=== PATIENT | female | born 1995 | race Caucasian/White ===

== ENCOUNTER 2021-06-19 12:16 | Day surgery (SDC) | payer SELFPAY ==
--- NOTE | 2021-06-19 12:20 | EDM.PDOC ---
ED HPI GENERAL MEDICAL PROBLEM - General Stated Complaint: CLINIC/URINE ISSUES Time Seen by Provider: 06/19/21 12:17 Source of Information: Reports: Patient History Limitations: Reports: No Limitations - History of Present Illness INITIAL COMMENTS - FREE TEXT/NARRATIVE: 26-year-old female no past medical history presents from clinic for buttock and anal area pain. Patient states that 6 days ago she passed a hard, large bowel movement and afterwards noted some bleeding in her stool and anal pain. She took [id number] stool softeners. She notes the pain is worsened over the last 2 to 3 days noting pain around her anus and into her buttocks. She describes it as a burning, spasm-like pain. She has noted subjective fever and chills. Denies any urinary symptoms. Denies vaginal discharge. Notes difficulty sitting secondary to pain. Patient was evaluated by clinic physician who notes patient was difficult to evaluate secondary to pain. She notes feeling a palpable lump around her inner-right buttocks. She notes painful defecation and had an "explosive" bowel movement yesterday which she attributes to OTC Dulcolax and which made symptoms much worse. She notes prior to pain starting around 1week ago she was "playing around" in a car doing pushups and being silly and thinks she could have injured it. Right Buttock Pain Score (Numeric/FACES): 9 - Related Data Allergies Allergy/AdvReac Type Severity Reaction Status Date / Time No Known Allergies Allergy Verified 06/19/21 12:27 Home Meds: Home Meds . [No Known Home Meds] 06/19/21 [History] ED ROS GENERAL - Review of Systems Review Of Systems: Comprehensive ROS is negative, except as noted in HPI. ED EXAM, GENERAL - Physical Exam Exam: See Below Exam Limited By: No Limitations General Appearance: Alert, WD/WN, No Apparent Distress Ears: Hearing Grossly Normal Throat/Mouth: Normal Voice, No Airway Compromise Head: Atraumatic, Normocephalic Neck: Normal Inspection Respiratory/Chest: No Respiratory Distress, Lungs Clear, Normal Breath Sounds, No Accessory Muscle Use Cardiovascular: Normal Peripheral Pulses, Regular Rate, Rhythm GI/Abdominal: Soft, Non-Tender Rectal (Female) Exam: Other (TTP of right inner buttocks without induration/erythema/fluctuance appreciated. Normal appearing anus. No discharge) Extremities: Normal Inspection Neurological: Alert, Normal Cognition, Normal Gait Psychiatric: Normal Affect, Normal Mood Skin Exam: Warm, Dry, Intact, Normal Color Course - Vital Signs Last Recorded V/S: Last Vital Signs Temp 97.5 F 06/19/21 12:29 Pulse 66 06/19/21 14:48 Resp 20 06/19/21 14:48 BP 108/50 L 06/19/21 14:48 Pulse Ox 99 06/19/21 14:48 - Orders/Labs/Meds Orders: Active Orders 24 hr Category Date Time Status CORONAVIRUS COVID-19 HANDY [MOLEC] Stat Lab 06/19/21 15:05 Received Piperacillin/Tazobactam [Piperacil-Tazobact] 4.5 gm Med 06/19/21 14:49 Active Sodium Chloride 0.9% [Normal Saline AdvBag] 100 ml IV ONETIME Saline Lock Insert [OM.PC] Stat Oth 06/19/21 12:45 Ordered Medication Orders Piperacillin Sod/Tazobactam (Sod 4.5 gm/ Sodium Chloride) 100 mls @ 100 mls/hr IV ONETIME ONE Stop: 06/19/21 15:48 Last Admin: 06/19/21 15:30 Dose: 100 mls/hr Documented by: LORELEI Labs: Laboratory Tests 06/19/21 06/19/21 06/19/21 Range/Units 12:45 12:45 13:00 WBC 16.39 H (4.0-11.0) K/uL RBC 4.00 L (4.30-5.90) M/uL Hgb 12.2 (12.0-16.0) g/dL Hct 36.3 (36.0-46.0) % MCV 90.8 (80.0-98.0) fL MCH 30.5 (27.0-32.0) pg MCHC 33.6 (31.0-37.0) g/dL RDW Std Deviation 39.1 (28.0-62.0) fl RDW Coeff of [place] 12 (11.0-15.0) % Plt Count 346 (150-400) K/uL MPV 9.00 (7.40-12.00) fL Neut % (Auto) 81.9 H (48.0-80.0) % Lymph % (Auto) 8.5 L (16.0-40.0) % [place] % (Auto) 9.3 (0.0-15.0) % Eos % (Auto) 0.2 (0.0-7.0) % Baso % (Auto) 0.1 (0.0-1.5) % Neut # (Auto) 13.4 H (1.4-5.7) K/uL Lymph # (Auto) 1.4 (0.6-2.4) K/uL [place] # (Auto) 1.5 H (0.0-0.8) K/uL Eos # (Auto) 0.0 (0.0-0.7) K/uL Baso # (Auto) 0.0 (0.0-0.1) K/uL Nucleated RBC % 0.0 /100WBC Nucleated RBCs # 0 K/uL Sodium 140 (136-145) mmol/L Potassium 3.9 (3.5-5.1) mmol/L Chloride 104 (98-107) mmol/L Carbon Dioxide 29.4 (21.0-32.0) mmol/L BUN 6 L (7.0-18.0) mg/dL Creatinine 0.7 (0.6-1.0) mg/dL Est Cr Clr Drug Dosing 103.32 mL/min Estimated GFR (MDRD) > 60.0 ml/min Glucose 117 H (74-106) mg/dL Lactic Acid (0.4-2.0) mmol/L Calcium 8.5 (8.5-10.1) mg/dL Total Bilirubin 0.3 (0.2-1.0) mg/dL AST 10 L (15-37) IU/L ALT 13 L (14-63) IU/L Alkaline Phosphatase 68 (46-116) U/L Total Protein 7.2 (6.4-8.2) g/dL Albumin 2.8 L (3.4-5.0) g/dL Globulin 4.4 H (2.6-4.0) g/dL Albumin/Globulin Ratio 0.6 L (0.9-1.6) Urine Color YELLOW Urine Appearance CLEAR Urine pH 6.5 (5.0-8.0) Ur Specific [place] <= 1.005 (1.001-1.035) Urine Protein NEGATIVE (NEGATIVE) mg/dL Urine Glucose (UA) NEGATIVE (NEGATIVE) mg/dL Urine Ketones NEGATIVE (NEGATIVE) mg/dL Urine Occult Blood TRACE-LYSED H (NEGATIVE) Urine Nitrite NEGATIVE (NEGATIVE) Urine Bilirubin NEGATIVE (NEGATIVE) Urine Urobilinogen 0.2 (<2.0) EU/dL Ur Leukocyte Esterase NEGATIVE (NEGATIVE) Urine RBC NONE SEEN (0-2/HPF) Urine WBC 0-1 (0-5/HPF) Ur Epithelial Cells FEW (NONE-FEW) Urine Bacteria 1+ H (NEGATIVE) Urine Mucus LIGHT (NONE-MOD) Urine HCG, Qual (NEGATIVE) 06/19/21 06/19/21 Range/Units 13:00 13:11 WBC (4.0-11.0) K/uL RBC (4.30-5.90) M/uL Hgb (12.0-16.0) g/dL Hct (36.0-46.0) % MCV (80.0-98.0) fL MCH (27.0-32.0) pg MCHC (31.0-37.0) g/dL RDW Std Deviation (28.0-62.0) fl RDW Coeff of [place] (11.0-15.0) % Plt Count (150-400) K/uL MPV (7.40-12.00) fL Neut % (Auto) (48.0-80.0) % Lymph % (Auto) (16.0-40.0) % [place] % (Auto) (0.0-15.0) % Eos % (Auto) (0.0-7.0) % Baso % (Auto) (0.0-1.5) % Neut # (Auto) (1.4-5.7) K/uL Lymph # (Auto) (0.6-2.4) K/uL [place] # (Auto) (0.0-0.8) K/uL Eos # (Auto) (0.0-0.7) K/uL Baso # (Auto) (0.0-0.1) K/uL Nucleated RBC % /100WBC Nucleated RBCs # K/uL Sodium (136-145) mmol/L Potassium (3.5-5.1) mmol/L Chloride (98-107) mmol/L Carbon Dioxide (21.0-32.0) mmol/L BUN (7.0-18.0) mg/dL Creatinine (0.6-1.0) mg/dL Est Cr Clr Drug Dosing mL/min Estimated GFR (MDRD) ml/min Glucose (74-106) mg/dL Lactic Acid 0.5 (0.4-2.0) mmol/L Calcium (8.5-10.1) mg/dL Total Bilirubin (0.2-1.0) mg/dL AST (15-37) IU/L ALT (14-63) IU/L Alkaline Phosphatase (46-116) U/L Total Protein (6.4-8.2) g/dL Albumin (3.4-5.0) g/dL Globulin (2.6-4.0) g/dL Albumin/Globulin Ratio (0.9-1.6) Urine Color Urine Appearance Urine pH (5.0-8.0) Ur Specific [place] (1.001-1.035) Urine Protein (NEGATIVE) mg/dL Urine Glucose (UA) (NEGATIVE) mg/dL Urine Ketones (NEGATIVE) mg/dL Urine Occult Blood (NEGATIVE) Urine Nitrite (NEGATIVE) Urine Bilirubin (NEGATIVE) Urine Urobilinogen (<2.0) EU/dL Ur Leukocyte Esterase (NEGATIVE) Urine RBC (0-2/HPF) Urine WBC (0-5/HPF) Ur Epithelial Cells (NONE-FEW) Urine Bacteria (NEGATIVE) Urine Mucus (NONE-MOD) Urine HCG, Qual NEGATIVE (NEGATIVE) Meds: Medications Generic Name Dose Route Start Last Admin Trade Name Freq PRN Reason Stop Dose Admin Piperacillin Sod/Tazobactam 100 mls @ 100 mls/hr 06/19/21 14:49 06/19/21 15:30 Sod 4.5 gm/ Sodium Chloride IV 06/19/21 15:48 100 mls/hr ONETIME ONE Administration Discontinued Medications Generic Name Dose Route Start Last Admin Trade Name Freq PRN Reason Stop Dose Admin Iopamidol 60 ml 06/19/21 13:56 06/19/21 13:56 Iopamidol 755 Mg/Ml 500 Ml Multipack Bottle IVPUSH 06/19/21 13:57 60 ml ONETIME STA Administration Morphine Sulfate 4 mg 06/19/21 12:45 06/19/21 12:52 Morphine 4 Mg/Ml Vial IVPUSH 06/19/21 12:46 4 mg ONETIME ONE Administration Morphine Sulfate 4 mg 06/19/21 14:36 06/19/21 14:46 Morphine 4 Mg/Ml Vial IVPUSH 06/19/21 14:37 4 mg ONETIME ONE Administration - Re-Assessments/Exams Free Text/Narrative Re-Assessment/Exam: 06/19/21 12:49 Uncertain etiology of symptoms. Will get basic labs and CT imaging to r/o deep space infection 06/19/21 13:24 Labs reveal leukocytosis, otherwise unremarkable 06/19/21 14:54 CT imaging with large perirectal abscess. Dr. Rothman general surgery. Zosyn ordered. COVID test ordered. 06/19/21 15:35 Will admit for observation and surgical drainage. Departure - Departure Time of Disposition: 15:35 Disposition: Refer to Observation Condition: Good Clinical Impression: Perirectal abscess - Discharge Information Instructions: Anorectal Abscess Referrals: PCP,None [Primary Care Provider] - Sepsis Event Note (ED) - Focused Exam Vital Signs: Vital Signs Temp Pulse Resp BP Pulse Ox 06/19/21 14:48 66 20 108/50 L 99 06/19/21 12:29 97.5 F 86 16 111/46 L 97 - My Orders Last 24 Hours: My Active Orders 06/19/21 12:45 Saline Lock Insert [OM.PC] Stat 06/19/21 14:49 Piperacillin/Tazobactam [Piperacil-Tazobact] 4.5 gm Sodium Chloride 0.9% [Normal Saline AdvBag] 100 ml IV ONETIME 06/19/21 15:05 CORONAVIRUS COVID-19 HANDY [MOLEC] Stat - Assessment/Plan Last 24 Hours: My Active Orders 06/19/21 12:45 Saline Lock Insert [OM.PC] Stat 06/19/21 14:49 Piperacillin/Tazobactam [Piperacil-Tazobact] 4.5 gm Sodium Chloride 0.9% [Normal Saline AdvBag] 100 ml IV ONETIME 06/19/21 15:05 CORONAVIRUS COVID-19 HANDY [MOLEC] Stat
[2021-06-19] MEDS ORDERED: Morphine 4 MG/ML VIAL IVPUSH ONE ×2 (12:45→14:36)
[2021-06-19 13:12] LABS: BLOOD UREA NITROGEN,BUN 6 mg/dL (7.0-18.0); CARBON DIOXIDE,CO2 29.4 mmol/L (21.0-32.0); CHLORIDE,CL 104 mmol/L (98-107); GLUCOSE RANDOM 117 mg/dL (74-106); POTASSIUM,K 3.9 mmol/L (3.5-5.1); SODIUM,NA 140 mmol/L (136-145)
[2021-06-19] MEDS ORDERED: Iopamidol 755 MG/ML 500 ML Multipack Bottle IVPUSH STA (13:56)
--- NOTE | 2021-06-19 14:44 | CT ---
INDICATION: Right perirectal pain. TECHNIQUE: CT abdomen and pelvis acquired with 60 cc Isovue 370 IV contrast. COMPARISON: None. FINDINGS: Lower chest: Unremarkable. Liver: Unremarkable. Normal in size and attenuation. No suspicious masses. Gallbladder and bile ducts: Unremarkable. No stones or inflammation. No biliary dilatation. Pancreas: Unremarkable. No mass or inflammation. Spleen: Unremarkable. Normal in size. No masses. Adrenal glands: Unremarkable. No nodules. Kidneys: Unremarkable. No suspicious masses, stones, or hydronephrosis. GI tract: Large 5 cm perirectal abscess is along the posterior lateral margins of the rectum as demonstrated on axial series 201, image 168. Remainder of the GI tract is unremarkable. Normal appendix. Vasculature: Unremarkable. Mesenteric arteries are patent. Lymph nodes: No lymphadenopathy. Omentum/Peritoneum/Abdominal Wall: Unremarkable. No sign of mass or infiltration. No free air or significant free fluid. Pelvis: Unremarkable. Bones: Unremarkable for age. IMPRESSION: Large 5 cm perirectal abscess. Remainder of the exam is unremarkable. Please note that all CT scans at this facility use dose modulation, iterative reconstruction, and/or weight-based dosing when appropriate to reduce radiation dose to as low as reasonably achievable. Dictated by Catalino Ricardo MD @ 06/19/2021 2:42:20 PM (Electronically Signed)
[2021-06-19] MEDS ORDERED: Piperacillin/Tazobactam 4.5 GM in Sodium Chloride 0.9% 100 ML IV ONE (14:49)
[2021-06-19] MEDS ORDERED: Sodium Chloride 0.9% 20 ML SDV IV PRN (15:46)
[2021-06-19] MEDS ORDERED: Sodium Chloride 0.9% 10 ML Syringe FLUSH PRN (15:46)
[2021-06-19] MEDS ORDERED: Sodium Chloride 0.9% 2.5 ML Syringe FLUSH PRN (15:46)
--- NOTE | 2021-06-19 15:54 | PCM.HP.2 ---
H&P History of Present Illness - General Date of Service: 06/19/21 Admit Problem/Dx: Admission Diagnosis/Problem Admission Diagnosis/Problem Perirectal abscess Source of Information: Patient History Limitations: Reports: No Limitations - History of Present Illness Initial Comments - Free Text/Narative: Patient is a 26 year old female who presents with a large perianal abscess. She had a pain with defecation and some bright red bleeding per rectum. The pain did not subside and has gotten worse around her anus. She started to developed diaphoresis, fevers and chills. The pain was so bad today she went to see her PCP. He sent her to the ER for further evaluation. Her WBC was elevated at 16K. CT scan of the abdomen/pelvis showed a large perianal abscess. Right Buttock Pain Score (Numeric/FACES): 9 - Related Data Allergies/Adverse Reactions: Allergies Allergy/AdvReac Type Severity Reaction Status Date / Time No Known Allergies Allergy Verified 06/19/21 12:27 Home Medications: Home Meds . [No Known Home Meds] 06/19/21 [History] Past Medical History HEENT History: Reports: Other (See Below) Other HEENT History: jaw surgery - Past Surgical History HEENT Surgical History: Reports: Other (See Below) (jaw surgery) Social & Family History - Family History Family Medical History: No Pertinent Family History - Tobacco Use Tobacco Use Status *Q: Never Tobacco User - Caffeine Use Caffeine Use: Reports: Coffee - Recreational Drug Use Recreational Drug Use: No H&P Review of Systems - Review of Systems: Review Of Systems: Comprehensive ROS is negative, except as noted in HPI. Exam - Exam Exam: See Below - Vital Signs Vital Signs: Last Vital Signs Temp 36.4 C 06/19/21 12:29 Pulse 66 06/19/21 14:48 Resp 20 06/19/21 14:48 BP 108/50 L 06/19/21 14:48 Pulse Ox 99 06/19/21 14:48 Weight: 72.575 kg - Exam General: Alert, Oriented, Moderate Distress HEENT: Conjunctiva Clear, Mucosa Moist & [place], Posterior Pharynx Clear Lungs: Clear to Auscultation, Normal Respiratory Effort Cardiovascular: Regular Rate, Regular Rhythm GI/Abdominal Exam: Soft, Non-Tender, No Distention, No Mass Rectal (Female) Exam: Other (Exquisite tenderness around anoderm. Fluctuant mass palpated along the left side. ) - Patient Data Lab Results Last 24 hrs: Laboratory Results - last 24 hr 06/19/21 06/19/21 06/19/21 Range/Units 12:45 12:45 13:00 WBC 16.39 H (4.0-11.0) K/uL RBC 4.00 L (4.30-5.90) M/uL Hgb 12.2 (12.0-16.0) g/dL Hct 36.3 (36.0-46.0) % MCV 90.8 (80.0-98.0) fL MCH 30.5 (27.0-32.0) pg MCHC 33.6 (31.0-37.0) g/dL RDW Std Deviation 39.1 (28.0-62.0) fl RDW Coeff of [place] 12 (11.0-15.0) % Plt Count 346 (150-400) K/uL MPV 9.00 (7.40-12.00) fL Neut % (Auto) 81.9 H (48.0-80.0) % Lymph % (Auto) 8.5 L (16.0-40.0) % [place] % (Auto) 9.3 (0.0-15.0) % Eos % (Auto) 0.2 (0.0-7.0) % Baso % (Auto) 0.1 (0.0-1.5) % Neut # (Auto) 13.4 H (1.4-5.7) K/uL Lymph # (Auto) 1.4 (0.6-2.4) K/uL [place] # (Auto) 1.5 H (0.0-0.8) K/uL Eos # (Auto) 0.0 (0.0-0.7) K/uL Baso # (Auto) 0.0 (0.0-0.1) K/uL Nucleated RBC % 0.0 /100WBC Nucleated RBCs # 0 K/uL Sodium 140 (136-145) mmol/L Potassium 3.9 (3.5-5.1) mmol/L Chloride 104 (98-107) mmol/L Carbon Dioxide 29.4 (21.0-32.0) mmol/L BUN 6 L (7.0-18.0) mg/dL Creatinine 0.7 (0.6-1.0) mg/dL Est Cr Clr Drug Dosing 103.32 mL/min Estimated GFR (MDRD) > 60.0 ml/min Glucose 117 H (74-106) mg/dL Lactic Acid (0.4-2.0) mmol/L Calcium 8.5 (8.5-10.1) mg/dL Total Bilirubin 0.3 (0.2-1.0) mg/dL AST 10 L (15-37) IU/L ALT 13 L (14-63) IU/L Alkaline Phosphatase 68 (46-116) U/L Total Protein 7.2 (6.4-8.2) g/dL Albumin 2.8 L (3.4-5.0) g/dL Globulin 4.4 H (2.6-4.0) g/dL Albumin/Globulin Ratio 0.6 L (0.9-1.6) Urine Color YELLOW Urine Appearance CLEAR Urine pH 6.5 (5.0-8.0) Ur Specific [place] <= 1.005 (1.001-1.035) Urine Protein NEGATIVE (NEGATIVE) mg/dL Urine Glucose (UA) NEGATIVE (NEGATIVE) mg/dL Urine Ketones NEGATIVE (NEGATIVE) mg/dL Urine Occult Blood TRACE-LYSED H (NEGATIVE) Urine Nitrite NEGATIVE (NEGATIVE) Urine Bilirubin NEGATIVE (NEGATIVE) Urine Urobilinogen 0.2 (<2.0) EU/dL Ur Leukocyte Esterase NEGATIVE (NEGATIVE) Urine RBC NONE SEEN (0-2/HPF) Urine WBC 0-1 (0-5/HPF) Ur Epithelial Cells FEW (NONE-FEW) Urine Bacteria 1+ H (NEGATIVE) Urine Mucus LIGHT (NONE-MOD) Urine HCG, Qual (NEGATIVE) 06/19/21 06/19/21 Range/Units 13:00 13:11 WBC (4.0-11.0) K/uL RBC (4.30-5.90) M/uL Hgb (12.0-16.0) g/dL Hct (36.0-46.0) % MCV (80.0-98.0) fL MCH (27.0-32.0) pg MCHC (31.0-37.0) g/dL RDW Std Deviation (28.0-62.0) fl RDW Coeff of [place] (11.0-15.0) % Plt Count (150-400) K/uL MPV (7.40-12.00) fL Neut % (Auto) (48.0-80.0) % Lymph % (Auto) (16.0-40.0) % [place] % (Auto) (0.0-15.0) % Eos % (Auto) (0.0-7.0) % Baso % (Auto) (0.0-1.5) % Neut # (Auto) (1.4-5.7) K/uL Lymph # (Auto) (0.6-2.4) K/uL [place] # (Auto) (0.0-0.8) K/uL Eos # (Auto) (0.0-0.7) K/uL Baso # (Auto) (0.0-0.1) K/uL Nucleated RBC % /100WBC Nucleated RBCs # K/uL Sodium (136-145) mmol/L Potassium (3.5-5.1) mmol/L Chloride (98-107) mmol/L Carbon Dioxide (21.0-32.0) mmol/L BUN (7.0-18.0) mg/dL Creatinine (0.6-1.0) mg/dL Est Cr Clr Drug Dosing mL/min Estimated GFR (MDRD) ml/min Glucose (74-106) mg/dL Lactic Acid 0.5 (0.4-2.0) mmol/L Calcium (8.5-10.1) mg/dL Total Bilirubin (0.2-1.0) mg/dL AST (15-37) IU/L ALT (14-63) IU/L Alkaline Phosphatase (46-116) U/L Total Protein (6.4-8.2) g/dL Albumin (3.4-5.0) g/dL Globulin (2.6-4.0) g/dL Albumin/Globulin Ratio (0.9-1.6) Urine Color Urine Appearance Urine pH (5.0-8.0) Ur Specific [place] (1.001-1.035) Urine Protein (NEGATIVE) mg/dL Urine Glucose (UA) (NEGATIVE) mg/dL Urine Ketones (NEGATIVE) mg/dL Urine Occult Blood (NEGATIVE) Urine Nitrite (NEGATIVE) Urine Bilirubin (NEGATIVE) Urine Urobilinogen (<2.0) EU/dL Ur Leukocyte Esterase (NEGATIVE) Urine RBC (0-2/HPF) Urine WBC (0-5/HPF) Ur Epithelial Cells (NONE-FEW) Urine Bacteria (NEGATIVE) Urine Mucus (NONE-MOD) Urine HCG, Qual NEGATIVE (NEGATIVE) Result Diagrams: 06/19/21 12:45 06/19/21 12:45 Sepsis Event Note - Focused Exam Vital Signs: Vital Signs Temp Pulse Resp BP Pulse Ox 06/19/21 14:48 66 20 108/50 L 99 06/19/21 12:29 36.4 C 86 16 111/46 L 97 - Problem List (1) Perirectal abscess SNOMED Code(s): 02372673 ICD Code: K61.1 - RECTAL ABSCESS Status: Acute Current Visit: Yes Problem List Initiated/Reviewed/Updated: Yes Orders Last 24hrs: Active Orders 24 hr Category Date Time Status Patient Status [ADT] Routine ADT 06/19/21 15:46 Ordered Antiembolic Devices [RC] PER UNIT ROUTINE Care 06/19/21 15:47 Ordered RT Incentive Spirometry [RC] Q1HWA Care 06/19/21 15:46 Ordered Verify Patient Consent Obtain [RC] ASDIRECTED Care 06/19/21 15:46 Ordered CORONAVIRUS COVID-19 HANDY [MOLEC] Stat Lab 06/19/21 15:05 Received Lactated Ringers @ 125 MLS/HR(1000ml) Med 06/19/21 16:00 Ordered Lactated Ringers [Ringers, Lactated] 1,000 ml IV ASDIRECTED Piperacillin/Tazobactam [Piperacil-Tazobact] 4.5 gm Med 06/19/21 14:49 Active Sodium Chloride 0.9% [Normal Saline AdvBag] 100 ml IV ONETIME Sodium Chloride 0.9% [Normal Saline] Med 06/19/21 15:46 Ordered 10 ml IV ASDIRECTED PRN Sodium Chloride 0.9% [Saline Flush] Med 06/19/21 15:46 Ordered 10 ml FLUSH ASDIRECTED PRN Sodium Chloride 0.9% [Saline Flush] Med 06/19/21 15:46 Ordered 2.5 ml FLUSH ASDIRECTED PRN Peripheral IV Insertion Adult [OM.PC] Routine Oth 06/19/21 15:46 Ordered Saline Lock Insert [OM.PC] Stat Oth 06/19/21 12:45 Ordered Sequential Compression Device [OM.PC] Routine Oth 06/19/21 15:46 Ordered Resuscitation Status Routine Resus Stat 06/19/21 15:46 Ordered Medication Orders Piperacillin Sod/Tazobactam (Sod 4.5 gm/ Sodium Chloride) 100 mls @ 100 mls/hr IV ONETIME ONE Stop: 06/19/21 15:48 Last Admin: 06/19/21 15:30 Dose: 100 mls/hr Documented by: LORELEI Lactated Ringer's (Ringers, Lactated) 1,000 mls @ 125 mls/hr IV ASDIRECTED DEEPIKA Sodium Chloride (Sodium Chloride 0.9% 10 Ml Syringe) 10 ml FLUSH ASDIRECTED PRN PRN Reason: Keep Vein Open Sodium Chloride (Sodium Chloride 0.9% 2.5 Ml Syringe) 2.5 ml FLUSH ASDIRECTED PRN PRN Reason: Keep Vein Open Sodium Chloride (Sodium Chloride 0.9% 20 Ml Sdv) 10 ml IV ASDIRECTED PRN PRN Reason: IV Use Assessment/Plan Comment:: Patient and I discussed the pathophysiology of perianal abscesses and fistulas. We discussed the CT findings. Her perianal abscess is very large and therefore she needs to go to the OR to have an aggressive debridement with possible drain and/or seton placement. We discussed the procedure, expected perioperative course and risks including bleeding, infection or damage to surrounding structures particularly the sphincter muscles which could effect continence. She verbalized understanding and wishes to proceed. She was given zosyn in the ER.
[2021-06-19] MEDS ORDERED: Lactated Ringers 1,000 ML IV SCH (16:00)
--- NOTE | 2021-06-19 16:06 | PCM.PREANE ---
Preanesthetic Assessment - Anesthesia/Transfusion/Family Hx Anesthesia History: Prior Anesthesia Without Reaction Transfusion History: No Prior Transfusion(s) - Review of Systems General: No Symptoms Pulmonary: No Symptoms Cardiovascular: No Symptoms Gastrointestinal: No Symptoms Neurological: No Symptoms Other: Reports: None - Physical Assessment NPO Status Date: 06/19/21 NPO Status Time: 09:00 Vital Signs: Last Vital Signs Temp 36.4 C 06/19/21 12:29 Pulse 66 06/19/21 14:48 Resp 20 06/19/21 14:48 BP 108/50 L 06/19/21 14:48 Pulse Ox 99 06/19/21 14:48 Height: 5 ft 4 in Weight: 72.575 kg ASA Class: 1E Mental Status: Alert & Oriented x3 Airway Class: Mallampati = 2 Dentition: Reports: Normal Dentition Thyro-Mental Finger Breadths: 3 Mouth Opening Finger Breadths: 3 ROM/Head Extension: Full Lungs: Clear to Auscultation, Normal Respiratory Effort Cardiovascular: Regular Rate, Regular Rhythm - Lab Values: Laboratory Last Values WBC 16.39 K/uL (4.0-11.0) H 06/19/21 12:45 RBC 4.00 M/uL (4.30-5.90) L 06/19/21 12:45 Hgb 12.2 g/dL (12.0-16.0) 06/19/21 12:45 Hct 36.3 % (36.0-46.0) 06/19/21 12:45 MCV 90.8 fL (80.0-98.0) 06/19/21 12:45 MCH 30.5 pg (27.0-32.0) 06/19/21 12:45 MCHC 33.6 g/dL (31.0-37.0) 06/19/21 12:45 RDW Std Deviation 39.1 fl (28.0-62.0) 06/19/21 12:45 RDW Coeff of [place] 12 % (11.0-15.0) 06/19/21 12:45 Plt Count 346 K/uL (150-400) 06/19/21 12:45 MPV 9.00 fL (7.40-12.00) 06/19/21 12:45 Neut % (Auto) 81.9 % (48.0-80.0) H 06/19/21 12:45 Lymph % (Auto) 8.5 % (16.0-40.0) L 06/19/21 12:45 [place] % (Auto) 9.3 % (0.0-15.0) 06/19/21 12:45 Eos % (Auto) 0.2 % (0.0-7.0) 06/19/21 12:45 Baso % (Auto) 0.1 % (0.0-1.5) 06/19/21 12:45 Neut # (Auto) 13.4 K/uL (1.4-5.7) H 06/19/21 12:45 Lymph # (Auto) 1.4 K/uL (0.6-2.4) 06/19/21 12:45 [place] # (Auto) 1.5 K/uL (0.0-0.8) H 06/19/21 12:45 Eos # (Auto) 0.0 K/uL (0.0-0.7) 06/19/21 12:45 Baso # (Auto) 0.0 K/uL (0.0-0.1) 06/19/21 12:45 Nucleated RBC % 0.0 /100WBC 06/19/21 12:45 Nucleated RBCs # 0 K/uL 06/19/21 12:45 Sodium 140 mmol/L (136-145) 06/19/21 12:45 Potassium 3.9 mmol/L (3.5-5.1) 06/19/21 12:45 Chloride 104 mmol/L (98-107) 06/19/21 12:45 Carbon Dioxide 29.4 mmol/L (21.0-32.0) 06/19/21 12:45 BUN 6 mg/dL (7.0-18.0) L 06/19/21 12:45 Creatinine 0.7 mg/dL (0.6-1.0) 06/19/21 12:45 Est Cr Clr Drug Dosing 103.32 mL/min 06/19/21 12:45 Estimated GFR (MDRD) > 60.0 ml/min 06/19/21 12:45 Glucose 117 mg/dL (74-106) H 06/19/21 12:45 Lactic Acid 0.5 mmol/L (0.4-2.0) 06/19/21 13:11 Calcium 8.5 mg/dL (8.5-10.1) 06/19/21 12:45 Total Bilirubin 0.3 mg/dL (0.2-1.0) 06/19/21 12:45 AST 10 IU/L (15-37) L 06/19/21 12:45 ALT 13 IU/L (14-63) L 06/19/21 12:45 Alkaline Phosphatase 68 U/L (46-116) 06/19/21 12:45 Total Protein 7.2 g/dL (6.4-8.2) 06/19/21 12:45 Albumin 2.8 g/dL (3.4-5.0) L 06/19/21 12:45 Globulin 4.4 g/dL (2.6-4.0) H 06/19/21 12:45 Albumin/Globulin Ratio 0.6 (0.9-1.6) L 06/19/21 12:45 Urine Color YELLOW 06/19/21 13:00 Urine Appearance CLEAR 06/19/21 13:00 Urine pH 6.5 (5.0-8.0) 06/19/21 13:00 Ur Specific [place] <= 1.005 (1.001-1.035) 06/19/21 13:00 Urine Protein NEGATIVE mg/dL (NEGATIVE) 06/19/21 13:00 Urine Glucose (UA) NEGATIVE mg/dL (NEGATIVE) 06/19/21 13:00 Urine Ketones NEGATIVE mg/dL (NEGATIVE) 06/19/21 13:00 Urine Occult Blood TRACE-LYSED (NEGATIVE) H 06/19/21 13:00 Urine Nitrite NEGATIVE (NEGATIVE) 06/19/21 13:00 Urine Bilirubin NEGATIVE (NEGATIVE) 06/19/21 13:00 Urine Urobilinogen 0.2 EU/dL (<2.0) 06/19/21 13:00 Ur Leukocyte Esterase NEGATIVE (NEGATIVE) 06/19/21 13:00 Urine RBC NONE SEEN (0-2/HPF) 06/19/21 13:00 Urine WBC 0-1 (0-5/HPF) 06/19/21 13:00 Ur Epithelial Cells FEW (NONE-FEW) 06/19/21 13:00 Urine Bacteria 1+ (NEGATIVE) H 06/19/21 13:00 Urine Mucus LIGHT (NONE-MOD) 06/19/21 13:00 Urine HCG, Qual NEGATIVE (NEGATIVE) 06/19/21 13:00 SARS-CoV-2 RNA (HANDY) NEGATIVE (NEGATIVE) 06/19/21 15:05 - Allergies Allergies/Adverse Reactions: Allergies Allergy/AdvReac Type Severity Reaction Status Date / Time No Known Allergies Allergy Verified 06/19/21 12:27 - Acknowledgements Anesthesia Type Planned: General Anesthesia Pt an Appropriate Candidate for the Planned Anesthesia: Yes Alternatives and Risks of Anesthesia Discussed w Pt/Guardian: Yes Pt/Guardian Understands and Agrees with Anesthesia Plan: Yes PreAnesthesia Questionnaire HEENT History: Reports: Other (See Below) Other HEENT History: jaw surgery - Past Surgical History HEENT Surgical History: Reports: Other (See Below) (jaw surgery) - SUBSTANCE USE Tobacco Use Status *Q: Never Tobacco User Recreational Drug Use History: No - HOME MEDS Home Medications: Home Meds . [No Known Home Meds] 06/19/21 [History] - CURRENT (IN HOUSE) MEDS Current Meds: Current Medications Lactated Ringer's (Ringers, Lactated) 1,000 mls @ 125 mls/hr IV ASDIRECTED DEEPIKA Sodium Chloride (Sodium Chloride 0.9% 10 Ml Syringe) 10 ml FLUSH ASDIRECTED PRN PRN Reason: Keep Vein Open Sodium Chloride (Sodium Chloride 0.9% 2.5 Ml Syringe) 2.5 ml FLUSH ASDIRECTED PRN PRN Reason: Keep Vein Open Sodium Chloride (Sodium Chloride 0.9% 20 Ml Sdv) 10 ml IV ASDIRECTED PRN PRN Reason: IV Use Discontinued Medications Piperacillin Sod/Tazobactam (Sod 4.5 gm/ Sodium Chloride) 100 mls @ 100 mls/hr IV ONETIME ONE Stop: 06/19/21 15:48 Last Admin: 06/19/21 15:30 Dose: 100 mls/hr Documented by: Iopamidol (Iopamidol 755 Mg/Ml 500 Ml Multipack Bottle) 60 ml IVPUSH ONETIME STA Stop: 06/19/21 13:57 Last Admin: 06/19/21 13:56 Dose: 60 ml Documented by: Morphine Sulfate (Morphine 4 Mg/Ml Vial) 4 mg IVPUSH ONETIME ONE Stop: 06/19/21 12:46 Last Admin: 06/19/21 12:52 Dose: 4 mg Documented by: Morphine Sulfate (Morphine 4 Mg/Ml Vial) 4 mg IVPUSH ONETIME ONE Stop: 06/19/21 14:37 Last Admin: 06/19/21 14:46 Dose: 4 mg Documented by:
[2021-06-19] MEDS ORDERED: fentaNYL 100 MCG/2 ML SDV ONE (16:07)
[2021-06-19] MEDS ORDERED: Lidocaine 2% 100 MG/5 ML Syringe ONE (16:07)
[2021-06-19] MEDS ORDERED: Dexmedetomidine 200 MCG/2 ML SDV ONE (16:07)
[2021-06-19] MEDS ORDERED: Dexamethasone 4 MG/ML 5 ML MDV ONE (16:07)
[2021-06-19] MEDS ORDERED: Propofol 200 MG/20 ML SDV ONE (16:07)
[2021-06-19] MEDS ORDERED: Midazolam 1 MG/ML 2 ML SDV ONE (16:08)
[2021-06-19] MEDS ORDERED: Rocuronium Bromide 50 MG/5 ML Syringe ONE (16:08)
[2021-06-19] MEDS ORDERED: Water For Injection, Sterile 20 ML ONE (16:11)
[2021-06-19] MEDS ORDERED: Bupivacaine 0.5% 10 ML SDV ONE (16:15)
[2021-06-19] MEDS ORDERED: Ondansetron 4 MG/2 ML SDV ONE (17:07)
[2021-06-19] MEDS ORDERED: ePHEDrine 50 MG/ML SDV ONE (17:07)
[2021-06-19] MEDS ORDERED: Ketorolac 30 MG/ML SDV ONE (17:07)
[2021-06-19] MEDS ORDERED: fentaNYL 100 MCG/2 ML SDV IVPUSH PRN (17:14)
[2021-06-19] MEDS ORDERED: Metoclopramide 10 MG/2 ML SDV IVPUSH PRN (17:14)
[2021-06-19] MEDS ORDERED: Naloxone 0.4 MG/ML SDV IVPUSH PRN (17:14)
[2021-06-19] MEDS ORDERED: Ondansetron 4 MG/2 ML SDV IVPUSH PRN ×2 (17:14→17:58)
[2021-06-19] MEDS ORDERED: Morphine 2 MG/ML SYRINGE IVPUSH PRN (17:14)
[2021-06-19] MEDS ORDERED: HYDROmorphone 1 MG/ML Syringe IVPUSH PRN ×2 (17:14→17:58)
[2021-06-19] MEDS ORDERED: Albuterol 0.083% 2.5 MG/3 ML Neb Soln NEB PRN (17:14)
[2021-06-19] MEDS ORDERED: Acetaminophen/oxyCODONE 325-5 MG Tab PO PRN (17:58)
[2021-06-19] MEDS ORDERED: diphenhydrAMINE 50 MG/ML SDV IVPUSH PRN (17:58)
--- NOTE | 2021-06-19 17:58 | PCM.OPNOTE ---
- General Post-Op/Procedure Note Date of Surgery/Procedure: 06/19/21 Operative Procedure(s): Incision and drainage of perianal abscess, seton placement perianal fistula Findings: Perianal abscess multiloculated and approximately 10 x 6 x 10 cm. Posterior midline fissure, posterior midline fistula. Pre Op Diagnosis: Perianal abscess Post-Op Diagnosis: Perianal abscess, posterior midline fissure and fistula Anesthesia Technique: General ET Tube Primary Surgeon: Erlinda Rothman Condition: Stable
--- NOTE | 2021-06-19 18:02 | PCM.POSTAN ---
POST ANESTHESIA ASSESSMENT - MENTAL STATUS Mental Status: Alert, Oriented - VITAL SIGNS Vital Signs: Last Vital Signs Temp 36.4 C 06/19/21 12:29 Pulse 66 06/19/21 14:48 Resp 20 06/19/21 14:48 BP 108/50 L 06/19/21 14:48 Pulse Ox 99 06/19/21 14:48 - RESPIRATORY Respiratory Status: Respiratory Rate WNL, Airway Patent, O2 Saturation Stable - CARDIOVASCULAR CV Status: Pulse Rate WNL, Blood Pressure Stable - GASTROINTESTINAL GI Status: No Symptoms - POST OP HYDRATION Hydration Status: Adequate & Stable
--- NOTE | 2021-06-19 18:10 | PCM48HPAN ---
Post Anesthesia Note - EVALUATION WITHIN 48HRS OF ANESTHETIC Vital Signs in Normal Range: Yes Patient Participated in Evaluation: Yes Respiratory Function Stable: Yes Airway Patent: Yes Cardiovascular Function Stable: Yes Hydration Status Stable: Yes Pain Control Satisfactory: Yes Nausea and Vomiting Control Satisfactory: Yes Mental Status Recovered: Yes Vital Signs: Last Vital Signs Temp 36.4 C 06/19/21 17:38 Pulse 81 06/19/21 18:03 Resp 17 06/19/21 18:03 BP 110/60 06/19/21 18:03 Pulse Ox 94 L 06/19/21 18:03
[2021-06-19] MEDS: Piperacillin/Tazobactam 3.375 GM in Sodium Chloride 0.9% 50 ML IV SCH (22:09)
--- NOTE | 2021-06-20 00:05 | OR ---
SURGEON: ERLINDA ROTHMAN MD DATE OF PROCEDURE: 06/19/2021 PREOPERATIVE DIAGNOSIS: Perianal abscess. POSTOPERATIVE DIAGNOSES: 1. Perianal abscess. 2. Posterior midline anal fissure. 3. Posterior midline anal fistula. PROCEDURE PERFORMED: Exam under anesthesia; incision and drainage of perianal abscess; seton placement, perianal fistula. PRIMARY SURGEON: Erlinda Rothman MD ANESTHESIA: General endotracheal anesthesia. FLUIDS: 1000 mL crystalloid. ESTIMATED BLOOD LOSS: 10 mL. FINDINGS: Large posterior midline perianal abscess that tracked laterally along both the right and left anoderm. A posterior midline fissure, posterior midline fistula. COMPLICATIONS: None. INDICATIONS: The patient is a 26-year-old female who presented to the emergency room with 1 week of perianal pain. Workup revealed an elevated white count, and CT scan showed a large posterior perianal abscess, which appeared to track both medially on either side of the anus. Given its size and the amount of pain the patient was in, the decision was made to proceed to the operating room to examine her under anesthesia, incise and drain this abscess, and look for signs of a perianal fistula or perianal fissure. The patient and I discussed the procedure, expected perioperative course, and the risks. She verbalized understanding and wishes to proceed. PROCEDURE IN DETAIL: The patient was brought to the OR and placed on the OR cart in supine position. A time-out was completed verifying the patient's name, age, date of , allergies, and procedure to be performed. General endotracheal anesthesia was induced. The patient was then turned into a prone position making sure to appropriately position and pad the patient. She was secured to the bed. The anus and buttocks were then prepped and draped in usual standard fashion. A digital rectal exam was performed. I could feel some fullness along the posterior midline of the anal canal. There was fluctuance on either side on both the right posterolateral anoderm and left posterolateral anoderm. Using an 18-gauge needle, I pierced into the fluctuant area on the right side of the anoderm. 25 mL of purulent material was aspirated. The syringe and needle were removed. I then used an 11-blade to make a 1 cm incision in this area. I entered a very large cavity which tracked posteriorly as well as medially. This crossed the midline. Using a Eva clamp, I was able to reach across to the other side. In the area where I palpated the fullness on the left side, a counter incision was made using an 11 blade. I copiously irrigated this large abscess cavity with normal saline. It was explored with a Eva and hemostat, making sure to take down any loculations inside the abscess cavity. The abscess cavity measured 10 x 6 x 10 cm in size. It tracked anteriorly on both the right and left sides. A counter incision was made on either of the sides to allow for proper drainage. Quarter-inch [place] drains them were looped on both the right and left lateral anoderm back to my incision sites posteriorly. I then placed a [place] drain posteriorly across the midline as well. These were secured to themselves using 2-0 silk suture. A bivalve proctoscope was placed into the anus and used to explore the anal canal. The posterior anal canal and the distal rectum appeared injected. Along the posterior midline, the patient had a new-appearing anal fissure. A fistula probe was brought through one of my stab incision sites. It easily tracked to the posterior midline and an anal fistula was found down below the perianal fissure. A seton was then looped through this and secured to itself using interrupted 2-0 silk sutures. The area was closely inspected again. No other pockets of purulent material were noted. I packed 1 inch packing strip into the deep spaces posteriorly to allow for wicking of fluid out. I then numbed the anoderm and surrounding tissue with Exparel. 4 x 4 fluffs and mesh underwear were then used to cover the area. All bleeding was done at the end of the case. All counts were complete and correct at the end of the case. The patient was laid into a supine position on the OR cart and extubated. She was taken to the PACU in stable condition. POLI / BERE /[id number]
[2021-06-20] MEDS: Ketorolac 15 MG/ML SDV IVPUSH SCH ×3 (00:20→10:59)
[2021-06-20] MEDS: Piperacillin/Tazobactam 3.375 GM in Sodium Chloride 0.9% 50 ML IV SCH ×2 (04:03→09:05)
[2021-06-20] MEDS ORDERED: Polyethylene Glycol 3350 Powder 17 GM Packet PO SCH (09:00)
--- NOTE | 2021-06-20 09:17 | PCM.SURGPN ---
- General Info Date of Service: 06/20/21 Functional Status: Reports: Pain Controlled, Tolerating Diet, Ambulating, Urinating. Denies: New Symptoms - Review of Systems General: Reports: Night Sweats. Denies: Fever, Weakness, Fatigue, Malaise, Chills HEENT: Reports: No Symptoms Pulmonary: Reports: No Symptoms Cardiovascular: Reports: No Symptoms Gastrointestinal: Reports: No Symptoms Musculoskeletal: Reports: No Symptoms Skin: Reports: No Symptoms - Patient Data Vitals - Most Recent: Last Vital Signs Temp 36.3 C 06/20/21 04:00 Pulse 60 06/20/21 04:00 Resp 15 06/20/21 04:00 BP 119/68 06/20/21 04:00 Pulse Ox 98 06/20/21 04:00 Weight - Most Recent: 72.575 kg I&O - Last 24 Hours: Intake & Output 06/19/21 06/20/21 06/20/21 22:59 06:59 14:59 Intake Total 1150 1100 Balance 1150 1100 Lab Results Last 24 Hrs: Laboratory Results - last 24 hr 06/19/21 06/19/21 06/19/21 Range/Units 12:45 12:45 13:00 WBC 16.39 H (4.0-11.0) K/uL RBC 4.00 L (4.30-5.90) M/uL Hgb 12.2 (12.0-16.0) g/dL Hct 36.3 (36.0-46.0) % MCV 90.8 (80.0-98.0) fL MCH 30.5 (27.0-32.0) pg MCHC 33.6 (31.0-37.0) g/dL RDW Std Deviation 39.1 (28.0-62.0) fl RDW Coeff of [place] 12 (11.0-15.0) % Plt Count 346 (150-400) K/uL MPV 9.00 (7.40-12.00) fL Neut % (Auto) 81.9 H (48.0-80.0) % Lymph % (Auto) 8.5 L (16.0-40.0) % [place] % (Auto) 9.3 (0.0-15.0) % Eos % (Auto) 0.2 (0.0-7.0) % Baso % (Auto) 0.1 (0.0-1.5) % Neut # (Auto) 13.4 H (1.4-5.7) K/uL Lymph # (Auto) 1.4 (0.6-2.4) K/uL [place] # (Auto) 1.5 H (0.0-0.8) K/uL Eos # (Auto) 0.0 (0.0-0.7) K/uL Baso # (Auto) 0.0 (0.0-0.1) K/uL Nucleated RBC % 0.0 /100WBC Nucleated RBCs # 0 K/uL Sodium 140 (136-145) mmol/L Potassium 3.9 (3.5-5.1) mmol/L Chloride 104 (98-107) mmol/L Carbon Dioxide 29.4 (21.0-32.0) mmol/L BUN 6 L (7.0-18.0) mg/dL Creatinine 0.7 (0.6-1.0) mg/dL Est Cr Clr Drug Dosing 103.32 mL/min Estimated GFR (MDRD) > 60.0 ml/min Glucose 117 H (74-106) mg/dL Lactic Acid (0.4-2.0) mmol/L Calcium 8.5 (8.5-10.1) mg/dL Total Bilirubin 0.3 (0.2-1.0) mg/dL AST 10 L (15-37) IU/L ALT 13 L (14-63) IU/L Alkaline Phosphatase 68 (46-116) U/L Total Protein 7.2 (6.4-8.2) g/dL Albumin 2.8 L (3.4-5.0) g/dL Globulin 4.4 H (2.6-4.0) g/dL Albumin/Globulin Ratio 0.6 L (0.9-1.6) Urine Color YELLOW Urine Appearance CLEAR Urine pH 6.5 (5.0-8.0) Ur Specific [place] <= 1.005 (1.001-1.035) Urine Protein NEGATIVE (NEGATIVE) mg/dL Urine Glucose (UA) NEGATIVE (NEGATIVE) mg/dL Urine Ketones NEGATIVE (NEGATIVE) mg/dL Urine Occult Blood TRACE-LYSED H (NEGATIVE) Urine Nitrite NEGATIVE (NEGATIVE) Urine Bilirubin NEGATIVE (NEGATIVE) Urine Urobilinogen 0.2 (<2.0) EU/dL Ur Leukocyte Esterase NEGATIVE (NEGATIVE) Urine RBC NONE SEEN (0-2/HPF) Urine WBC 0-1 (0-5/HPF) Ur Epithelial Cells FEW (NONE-FEW) Urine Bacteria 1+ H (NEGATIVE) Urine Mucus LIGHT (NONE-MOD) Urine HCG, Qual (NEGATIVE) SARS-CoV-2 RNA (HANDY) (NEGATIVE) 06/19/21 06/19/21 06/19/21 Range/Units 13:00 13:11 15:05 WBC (4.0-11.0) K/uL RBC (4.30-5.90) M/uL Hgb (12.0-16.0) g/dL Hct (36.0-46.0) % MCV (80.0-98.0) fL MCH (27.0-32.0) pg MCHC (31.0-37.0) g/dL RDW Std Deviation (28.0-62.0) fl RDW Coeff of [place] (11.0-15.0) % Plt Count (150-400) K/uL MPV (7.40-12.00) fL Neut % (Auto) (48.0-80.0) % Lymph % (Auto) (16.0-40.0) % [place] % (Auto) (0.0-15.0) % Eos % (Auto) (0.0-7.0) % Baso % (Auto) (0.0-1.5) % Neut # (Auto) (1.4-5.7) K/uL Lymph # (Auto) (0.6-2.4) K/uL [place] # (Auto) (0.0-0.8) K/uL Eos # (Auto) (0.0-0.7) K/uL Baso # (Auto) (0.0-0.1) K/uL Nucleated RBC % /100WBC Nucleated RBCs # K/uL Sodium (136-145) mmol/L Potassium (3.5-5.1) mmol/L Chloride (98-107) mmol/L Carbon Dioxide (21.0-32.0) mmol/L BUN (7.0-18.0) mg/dL Creatinine (0.6-1.0) mg/dL Est Cr Clr Drug Dosing mL/min Estimated GFR (MDRD) ml/min Glucose (74-106) mg/dL Lactic Acid 0.5 (0.4-2.0) mmol/L Calcium (8.5-10.1) mg/dL Total Bilirubin (0.2-1.0) mg/dL AST (15-37) IU/L ALT (14-63) IU/L Alkaline Phosphatase (46-116) U/L Total Protein (6.4-8.2) g/dL Albumin (3.4-5.0) g/dL Globulin (2.6-4.0) g/dL Albumin/Globulin Ratio (0.9-1.6) Urine Color Urine Appearance Urine pH (5.0-8.0) Ur Specific [place] (1.001-1.035) Urine Protein (NEGATIVE) mg/dL Urine Glucose (UA) (NEGATIVE) mg/dL Urine Ketones (NEGATIVE) mg/dL Urine Occult Blood (NEGATIVE) Urine Nitrite (NEGATIVE) Urine Bilirubin (NEGATIVE) Urine Urobilinogen (<2.0) EU/dL Ur Leukocyte Esterase (NEGATIVE) Urine RBC (0-2/HPF) Urine WBC (0-5/HPF) Ur Epithelial Cells (NONE-FEW) Urine Bacteria (NEGATIVE) Urine Mucus (NONE-MOD) Urine HCG, Qual NEGATIVE (NEGATIVE) SARS-CoV-2 RNA (HANDY) NEGATIVE (NEGATIVE) Med Orders - Current: Current Medications Diphenhydramine HCl (Diphenhydramine 50 Mg/Ml Sdv) 25 mg IVPUSH Q4H PRN PRN Reason: Itching Hydromorphone HCl (Hydromorphone 1 Mg/Ml Syringe) 0.5 mg IVPUSH Q1H PRN PRN Reason: Pain (severe 7-10) Lactated Ringer's (Ringers, Lactated) 1,000 mls @ 125 mls/hr IV ASDIRECTED [facility] Last Admin: 06/19/21 16:07 Dose: 125 mls/hr Documented by: Piperacillin Sod/Tazobactam (Sod 3.375 gm/ Sodium Chloride) 50 mls @ 100 mls/hr IV Q6H [facility] Last Admin: 06/20/21 09:05 Dose: 100 mls/hr Documented by: Ketorolac Tromethamine (Ketorolac 15 Mg/Ml Sdv) 15 mg IVPUSH Q6H [facility] Stop: 06/20/21 18:01 Last Admin: 06/20/21 06:08 Dose: Not Given Documented by: Ondansetron HCl (Ondansetron 4 Mg/2 Ml Sdv) 4 mg IVPUSH Q6H PRN PRN Reason: Nausea/Vomiting Oxycodone/Acetaminophen (Acetaminophen/Oxycodone 325-5 Mg Tab) 2 tab PO Q4H PRN PRN Reason: Pain (moderate 4-6) Polyethylene Glycol (Polyethylene Glycol 3350 Powder 17 Gm Packet) 17 gm PO DAILY [facility] Last Admin: 06/20/21 08:48 Dose: 17 gm Documented by: Sodium Chloride (Sodium Chloride 0.9% 10 Ml Syringe) 10 ml FLUSH ASDIRECTED PRN PRN Reason: Keep Vein Open Last Admin: 06/19/21 16:08 Dose: 10 ml Documented by: Sodium Chloride (Sodium Chloride 0.9% 2.5 Ml Syringe) 2.5 ml FLUSH ASDIRECTED PRN PRN Reason: Keep Vein Open Last Admin: 06/19/21 16:09 Dose: 2.5 ml Documented by: Sodium Chloride (Sodium Chloride 0.9% 20 Ml Sdv) 10 ml IV ASDIRECTED PRN PRN Reason: IV Use Last Admin: 06/19/21 16:09 Dose: 10 ml Documented by: Discontinued Medications Albuterol (Albuterol 0.083% 2.5 Mg/3 Ml Neb Soln) 2.5 mg NEB ONETIME PRN PRN Reason: Wheezing Bupivacaine HCl (Bupivacaine 0.5% 10 Ml Sdv) Confirm Administered Dose 20 ml .ROUTE .STK-MED ONE Stop: 06/19/21 16:16 Dexamethasone (Dexamethasone 4 Mg/Ml 5 Ml Mdv) Confirm Administered Dose 20 mg .ROUTE .STK-MED ONE Stop: 06/19/21 16:08 Dexmedetomidine HCl (Dexmedetomidine 200 Mcg/2 Ml Sdv) Confirm Administered Dose 200 mcg .ROUTE .STK-MED ONE Stop: 06/19/21 16:08 Droperidol (Droperidol 5 Mg/2 Ml Sdv) 0.625 mg IVPUSH ONETIME PRN PRN Reason: Nausea/Vomiting Ephedrine Sulfate (Ephedrine 50 Mg/Ml Sdv) Confirm Administered Dose 50 mg .ROUTE .STK-MED ONE Stop: 06/19/21 17:08 Fentanyl (Fentanyl 100 Mcg/2 Ml Sdv) Confirm Administered Dose 100 mcg .ROUTE .STK-MED ONE Stop: 06/19/21 16:08 Fentanyl (Fentanyl 100 Mcg/2 Ml Sdv) 50 mcg IVPUSH Q5M PRN PRN Reason: Pain (mild 1-3) Hydromorphone HCl (Hydromorphone 1 Mg/Ml Syringe) 1 mg IVPUSH Q10M PRN PRN Reason: Pain (moderate 4-6) Piperacillin Sod/Tazobactam (Sod 4.5 gm/ Sodium Chloride) 100 mls @ 100 mls/hr IV ONETIME ONE Stop: 06/19/21 15:48 Last Admin: 06/19/21 15:30 Dose: 100 mls/hr Documented by: Sterile Water (Sterile Water For Injection) Confirm Administered Dose 20 mls @ as directed .ROUTE .STK-MED ONE Stop: 06/19/21 16:12 Acetaminophen (Ofirmev 1000 Mg/100 Ml) Confirm Administered Dose 100 mls @ as directed .ROUTE .STK-MED ONE Stop: 06/19/21 16:48 Iopamidol (Iopamidol 755 Mg/Ml 500 Ml Multipack Bottle) 60 ml IVPUSH ONETIME STA Stop: 06/19/21 13:57 Last Admin: 06/19/21 13:56 Dose: 60 ml Documented by: Ketorolac Tromethamine (Ketorolac 30 Mg/Ml Sdv) Confirm Administered Dose 30 mg .ROUTE .STK-MED ONE Stop: 06/19/21 17:08 Lidocaine HCl (Lidocaine 2% 100 Mg/5 Ml Syringe) Confirm Administered Dose 100 mg .ROUTE .STK-MED ONE Stop: 06/19/21 16:08 Metoclopramide HCl (Metoclopramide 10 Mg/2 Ml Sdv) 10 mg IVPUSH ONETIME PRN PRN Reason: Nausea/Vomiting Midazolam HCl (Midazolam 1 Mg/Ml 2 Ml Sdv) Confirm Administered Dose 2 mg .ROUTE .STK-MED ONE Stop: 06/19/21 16:09 Morphine Sulfate (Morphine 4 Mg/Ml Vial) 4 mg IVPUSH ONETIME ONE Stop: 06/19/21 12:46 Last Admin: 06/19/21 12:52 Dose: 4 mg Documented by: Morphine Sulfate (Morphine 4 Mg/Ml Vial) 4 mg IVPUSH ONETIME ONE Stop: 06/19/21 14:37 Last Admin: 06/19/21 14:46 Dose: 4 mg Documented by: Morphine Sulfate (Morphine 2 Mg/Ml Syringe) 2 mg IVPUSH Q10M PRN PRN Reason: Pain (severe 7-10) Naloxone HCl (Naloxone 0.4 Mg/Ml Sdv) 0.1 mg IVPUSH ASDIRECTED PRN PRN Reason: Respiratory Depression Ondansetron HCl (Ondansetron 4 Mg/2 Ml Sdv) Confirm Administered Dose 4 mg .ROUTE .STK-MED ONE Stop: 06/19/21 17:08 Ondansetron HCl (Ondansetron 4 Mg/2 Ml Sdv) 4 mg IVPUSH ONETIME PRN PRN Reason: Nausea/Vomiting Propofol (Propofol 200 Mg/20 Ml Sdv) Confirm Administered Dose 200 mg .ROUTE .STK-MED ONE Stop: 06/19/21 16:08 Rocuronium [place] (Rocuronium [place] 50 Mg/5 Ml Syringe) Confirm Administered Dose 0 mg .ROUTE .STK-MED ONE Stop: 06/19/21 16:09 Succinylcholine Chloride (Succinylcholine Chloride 200 Mg/10 Ml Syr) Confirm Administered Dose 200 mg .ROUTE .STK-MED ONE Stop: 06/19/21 17:09 - Exam Wound/Incisions: Healing Well, Drainage (serosanguinous mixed with pus) General: Alert, Oriented HEENT: Pupils Equal, Pupils Reactive Neck: Supple Lungs: Normal Respiratory Effort Cardiovascular: Regular Rate GI/Abdominal Exam: Soft, Non-Tender, No Distention, No Mass, Other (drains in place. Swelling and erythema significantly improved. Serosanguinous drainage from incision sites. ) Extremities: Normal Inspection Skin: Warm, Dry, Intact Neurological: No New Focal Deficit Psy/Mental Status: Alert, Normal Affect, Normal Mood Sepsis Event Note - Evaluation Sepsis Screening Result: No Definite Risk - Focused Exam Vital Signs: Vital Signs Temp Pulse Resp BP Pulse Ox 06/20/21 04:00 36.3 C 60 15 119/68 98 06/20/21 00:34 36.1 C 64 17 103/62 96 - Problem List & Annotations (1) Perirectal abscess SNOMED Code(s): 79939508 Code(s): K61.1 - RECTAL ABSCESS Status: Acute Current Visit: Yes (2) Perianal fistula SNOMED Code(s): 04521787 Code(s): K60.3 - ANAL FISTULA Status: Acute Current Visit: Yes (3) Perianal fissure SNOMED Code(s): 70935091 Code(s): K60.2 - ANAL FISSURE, UNSPECIFIED Status: Acute Current Visit: Yes - Problem List Review Problem List Initiated/Reviewed/Updated: Yes - My Orders Last 24 Hours: Active Orders 24 hr Category Date Time Status Patient Status [ADT] Routine ADT 06/19/21 15:46 Active Antiembolic Devices [RC] PER UNIT ROUTINE Care 06/19/21 15:47 Active Blood Glucose Check, Bedside [RC] PRN Care 06/19/21 17:14 Active Intake and Output [RC] QSHIFT Care 06/19/21 17:58 Active Notify Provider Vital Signs [RC] ASDIRECTED Care 06/19/21 17:14 Active Overnight Pulse Oximetry [RC] Click to Edit Care 06/19/21 17:14 Active Oxygen Therapy [RC] PRN Care 06/19/21 17:14 Active RT Aerosol Therapy [RC] ASDIRECTED Care 06/19/21 17:14 Active RT BiPAP/CPAP [RC] ASDIRECTED Care 06/19/21 17:14 Active RT Incentive Spirometry [RC] Q1HWA Care 06/19/21 15:46 Active Up ad Elsa [RC] ASDIRECTED Care 06/19/21 17:58 Active Verify Patient Consent Obtain [RC] ASDIRECTED Care 06/19/21 15:46 Active Regular Diet [DIET] Diet 06/19/21 Dinner Active Acetaminophen/oxyCODONE [Percocet 325-5 MG] Med 06/19/21 17:58 Active 2 tab PO Q4H PRN HYDROmorphone [Dilaudid] Med 06/19/21 17:58 Active 0.5 mg IVPUSH Q1H PRN Ketorolac [Toradol] Med 06/20/21 00:00 Active 15 mg IVPUSH Q6H Lactated Ringers [Ringers, Lactated] 1,000 ml Med 06/19/21 16:00 Active IV ASDIRECTED Ondansetron [Zofran] Med 06/19/21 17:58 Active 4 mg IVPUSH Q6H PRN Piperacillin/Tazobactam [Piperacil-Tazobact] 3.375 gm Med 06/19/21 22:00 Active Sodium Chloride 0.9% [Normal Saline AdvBag] 50 ml IV Q6H Sodium Chloride 0.9% [Normal Saline] Med 06/19/21 15:46 Active 10 ml IV ASDIRECTED PRN Sodium Chloride 0.9% [Saline Flush] Med 06/19/21 15:46 Active 10 ml FLUSH ASDIRECTED PRN Sodium Chloride 0.9% [Saline Flush] Med 06/19/21 15:46 Active 2.5 ml FLUSH ASDIRECTED PRN diphenhydrAMINE [Benadryl] Med 06/19/21 17:58 Active 25 mg IVPUSH Q4H PRN polyethylene glycoL 3350 [MiraLAX] Med 06/20/21 09:00 Active 17 gm PO DAILY Peripheral IV Insertion Adult [OM.PC] Routine Oth 06/19/21 15:46 Ordered Pulse Oximetry Continuous Monitoring [OM.PC] Routine Oth 06/19/21 17:14 Ordered Saline Lock Insert [OM.PC] Stat Oth 06/19/21 12:45 Ordered Sequential Compression Device [OM.PC] Routine Oth 06/19/21 15:46 Ordered Resuscitation Status Routine Resus Stat 06/19/21 15:46 Ordered Medication Orders Diphenhydramine HCl (Diphenhydramine 50 Mg/Ml Sdv) 25 mg IVPUSH Q4H PRN PRN Reason: Itching Hydromorphone HCl (Hydromorphone 1 Mg/Ml Syringe) 0.5 mg IVPUSH Q1H PRN PRN Reason: Pain (severe 7-10) Lactated Ringer's (Ringers, Lactated) 1,000 mls @ 125 mls/hr IV ASDIRECTED [facility] Last Admin: 06/19/21 16:07 Dose: 125 mls/hr Documented by: LORELEI Piperacillin Sod/Tazobactam (Sod 3.375 gm/ Sodium Chloride) 50 mls @ 100 mls/hr IV Q6H [facility] Last Admin: 06/20/21 09:05 Dose: 100 mls/hr Documented by: Infusion: 06/20/21 04:33 Dose: 100 mls/hr Documented by: Admin: 06/20/21 04:03 Dose: 100 mls/hr Documented by: Infusion: 06/19/21 22:39 Dose: 100 mls/hr Documented by: Admin: 06/19/21 22:09 Dose: 100 mls/hr Documented by: OZZIE Ketorolac Tromethamine (Ketorolac 15 Mg/Ml Sdv) 15 mg IVPUSH Q6H [facility] Stop: 06/20/21 18:01 Last Admin: 06/20/21 06:08 Dose: Not Given Documented by: Admin: 06/20/21 00:20 Dose: 15 mg Documented by: OZZIE Ondansetron HCl (Ondansetron 4 Mg/2 Ml Sdv) 4 mg IVPUSH Q6H PRN PRN Reason: Nausea/Vomiting Oxycodone/Acetaminophen (Acetaminophen/Oxycodone 325-5 Mg Tab) 2 tab PO Q4H PRN PRN Reason: Pain (moderate 4-6) Polyethylene Glycol (Polyethylene Glycol 3350 Powder 17 Gm Packet) 17 gm PO DAILY [facility] Last Admin: 06/20/21 08:48 Dose: 17 gm Documented by: JACKSON Sodium Chloride (Sodium Chloride 0.9% 10 Ml Syringe) 10 ml FLUSH ASDIRECTED PRN PRN Reason: Keep Vein Open Last Admin: 06/19/21 16:08 Dose: 10 ml Documented by: LORELEI Sodium Chloride (Sodium Chloride 0.9% 2.5 Ml Syringe) 2.5 ml FLUSH ASDIRECTED PRN PRN Reason: Keep Vein Open Last Admin: 06/19/21 16:09 Dose: 2.5 ml Documented by: LORELEI Sodium Chloride (Sodium Chloride 0.9% 20 Ml Sdv) 10 ml IV ASDIRECTED PRN PRN Reason: IV Use Last Admin: 06/19/21 16:09 Dose: 10 ml Documented by: LORELEI - Assessment Assessment (Free Text/Narrative):: Patient and I discussed wound cares today. She is cleared for discharge. Follow up in one week in clinic,
[2021-06-20] MEDS ORDERED: metroNIDAZOLE 250 MG Tab PO SCH (09:30)
[2021-06-20] MEDS ORDERED: Ciprofloxacin 500 MG Tab PO SCH (09:30)
== END 2021-06-20 11:15 | disposition home or self-care (01) ==
LOC: MW.ED 12:16 → MW.MS 15:36 → UNDOADMOB 15:36 → MW.MS 15:46 → MW.SDS 15:46
PROVIDERS: ATTEND Surgery
DX: K61.0 Anal abscess (principal); Z01.812 Encounter for preprocedural laboratory examination; Z20.822 Contact with and (suspected) exposure to COVID-19
CPT/HCPCS: 36415; 46020; 46045; 74177; 80053; 81001; 81025; 83605; 85025; 87635; 96365; 96375; 96376; 99285; A9270; J0131; J0330; J1100; J1885; J2250; J2270; J2543; J2704; J3490; J7120; Q9967; J2405; J3010; U0002